=== PATIENT | female | born 1955 | race American Indian/Alaskan Native ===

== ENCOUNTER 2018-04-11 23:25 | Emergency (ER) | payer MEDICARE, SELFPAY ==
--- NOTE | 2018-04-12 06:08 | Emergency Department Report ---
ED Abdominal Pain HPI - General Chief Complaint: Abdominal Pain Stated Complaint: ABD PAIN Time Seen by Provider: 04/12/18 06:07 Source: patient Mode of arrival: Ambulatory Limitations: No Limitations - History of Present Illness Initial Comments: 62 year old female reports right upper quadrant pain that sometimes it is felt in the back intermittently for 8 days. The patient states she had an exacerbation of asthma last Friday and received a steroid injection. She states that after that her abdominal pain improved or a few days but has been there after intermittently recurrent. She cannot relate the abdominal pain to eating. She states that she felt constipated once but denies nausea vomiting or diarrhea. She reports no problems urinating, no fever or chills. She states that she has not had fatty food intolerance in the past. She reports no history of gall stones or kidney stones. She has had no prior surgery. MD Complaint: abdominal pain -: week(s) Location: RUQ Radiation: R flank Migration to: no migration Severity: moderate Quality: cramping Consistency: intermittent Improves With: nothing Worsens With: nothing Associated Symptoms: denies other symptoms - Related Data Previous Rx's Medication Instructions Recorded Last Taken Type Nebulizer and Compressor 1 each MC BID PRN #1 each 05/03/15 10/01/15 Rx [Innospire Essence Myrtle Neb] Albuterol Sulfate [Albuterol 0.63% 0.63 mg IH TID PRN #1 box 10/02/15 Unknown Rx NEBS] Ipratropium [Atrovent NEB] 0.5 mg IH Q8HRT PRN #1 box 10/05/15 Unknown Rx Amoxicillin/Potassium Clav 1 each PO BID #10 tablet 04/12/18 Unknown Rx [Augmentin 875-125 Tablet] HYDROcodone/ACETAMINOPHEN [[place] 1 each PO Q6H #10 tablet 04/12/18 Unknown Rx 5-325 Tablet] Allergies Allergy/AdvReac Type Severity Reaction Status Date / Time No Known Allergies Allergy Verified 03/16/15 09:20 ED Review of Systems ROS: Stated complaint: ABD PAIN Other details as noted in HPI Constitutional: denies: chills, fever Eyes: denies: eye pain, eye discharge, vision change ENT: denies: ear pain, throat pain Respiratory: wheezing. denies: cough, shortness of breath Cardiovascular: denies: chest pain, palpitations Endocrine: no symptoms reported Gastrointestinal: abdominal pain. denies: nausea, vomiting, diarrhea Genitourinary: denies: urgency, dysuria, discharge Musculoskeletal: denies: back pain, joint swelling, arthralgia Skin: denies: rash, lesions Neurological: denies: headache, weakness, paresthesias Psychiatric: denies: anxiety, depression Hematological/Lymphatic: denies: easy bleeding, easy bruising ED Past Medical Hx - Past Medical History Previous Medical History?: Yes Hx Hypertension: Yes Hx Asthma: Yes Hx COPD: Yes (chronic bronchitis) Hx HIV: No Additional medical history: Ragweed allergies - Surgical History Past Surgical History?: No - Social History Smoking Status: Never Smoker Substance Use Type: None - Medications Home Medications: Home Medications Medication Instructions Recorded Confirmed Last Taken Type Nebulizer and Compressor 1 each MC BID PRN #1 each 05/03/15 04/12/18 10/01/15 Rx [Innospire Essence Myrtle Neb] Albuterol Sulfate [Albuterol 0.63% 0.63 mg IH TID PRN #1 box 10/02/15 04/12/18 Unknown Rx NEBS] Ipratropium [Atrovent NEB] 0.5 mg IH Q8HRT PRN #1 box 10/05/15 04/12/18 Unknown Rx Amoxicillin/Potassium Clav 1 each PO BID #10 tablet 04/12/18 Unknown Rx [Augmentin 875-125 Tablet] HYDROcodone/ACETAMINOPHEN [[place] 1 each PO Q6H #10 tablet 04/12/18 Unknown Rx 5-325 Tablet] ED Physical Exam - General Limitations: No Limitations General appearance: alert, in no apparent distress - Head Head exam: Present: atraumatic, normocephalic - Eye Eye exam: Present: normal appearance, PERRL, EOMI - ENT ENT exam: Present: mucous membranes moist - Neck Neck exam: Present: normal inspection - Respiratory Respiratory exam: Present: wheezes (mild bilateral). Absent: respiratory distress - Cardiovascular Cardiovascular Exam: Present: regular rate, normal rhythm. Absent: systolic murmur, diastolic murmur, rubs, gallop - GI/Abdominal GI/Abdominal exam: Present: soft, tenderness (very minimal right upper quadrant discomfort to deep palpation, negative Lux's), normal bowel sounds. Absent: distended, guarding, rebound, rigid, organomegaly, mass, bruit, pulsatile mass, hernia - Extremities Exam Extremities exam: Present: normal inspection - Back Exam Back exam: Present: normal inspection. Absent: CVA tenderness (R), CVA tenderness (L), muscle spasm, paraspinal tenderness, vertebral tenderness - Neurological Exam Neurological exam: Present: alert, oriented X3, CN II-XII intact. Absent: motor sensory deficit - Psychiatric Psychiatric exam: Present: normal affect, normal mood - Skin Skin exam: Present: warm, dry, intact, normal color. Absent: rash ED Course Vital Signs 04/11/18 04/12/18 04/12/18 23:29 00:11 05:27 Temperature 98.6 F 98.6 F 98.3 F Pulse Rate 91 H 88 78 Pulse Rate [ Posterior Bilateral Throughout] Respiratory 18 17 18 Rate Respiratory Rate [Posterior Bilateral Throughout] Blood Pressure 142/100 142/100 Blood Pressure 131/95 [Left] O2 Sat by Pulse 99 99 99 Oximetry 04/12/18 04/12/18 04/12/18 06:41 06:48 07:29 Temperature Pulse Rate Pulse Rate [ 98 H 95 H Posterior Bilateral Throughout] Respiratory Rate Respiratory 14 14 Rate [Posterior Bilateral Throughout] Blood Pressure Blood Pressure [Left] O2 Sat by Pulse 95 Oximetry 04/12/18 04/12/18 04/12/18 07:30 07:32 07:34 Temperature Pulse Rate Pulse Rate [ Posterior Bilateral Throughout] Respiratory Rate Respiratory Rate [Posterior Bilateral Throughout] Blood Pressure 123/84 123/84 123/84 Blood Pressure [Left] O2 Sat by Pulse 96 95 94 Oximetry 04/12/18 04/12/18 07:36 07:38 Temperature 98.8 F Pulse Rate Pulse Rate [ Posterior Bilateral Throughout] Respiratory 18 Rate Respiratory Rate [Posterior Bilateral Throughout] Blood Pressure 123/84 Blood Pressure [Left] O2 Sat by Pulse 95 Oximetry - Reevaluation(s) Reevaluation #1: Patient is resting comfortably. She states her pain is totally resolved. I do not see the basis of the radiologist"s interpretation for cholecystitis. There is no mention of pericholecystic fluid or an edematous gallbladder wall. I believe the patient rather has biliary colic. Notwithstanding this, I will place patient on Augmentin for a few days. She is referred to the surgeon store operations manager. Return criteria are discussed. Repeat examination of the abdomen was nontender. 04/12/18 08:18 04/12/18 08:19 ED Medical Decision Making - Lab Data Result diagrams: 04/12/18 06:16 04/12/18 06:16 Laboratory Results - last 24 hr 04/12/18 04/12/18 04/12/18 06:16 06:16 06:16 WBC 6.4 RBC 4.80 Hgb 13.5 Hct 39.9 MCV 83 MCH 28 MCHC 34 RDW 14.1 Plt Count 301 Lymph % (Auto) 33.1 [place] % (Auto) 12.8 H Eos % (Auto) 12.0 H Baso % (Auto) 0.6 Lymph # 2.1 [place] # 0.8 Eos # 0.8 H Baso # 0.0 Seg Neutrophils % 41.5 Seg Neutrophils # 2.7 PT 12.6 INR 0.90 APTT 35.1 Sodium 143 Potassium 4.0 Chloride 105.5 Carbon Dioxide 27 Anion Gap 15 BUN 13 Creatinine 0.7 Estimated GFR > 60 BUN/Creatinine Ratio 19 Glucose 112 H Calcium 9.4 Magnesium Total Bilirubin Direct Bilirubin AST ALT Alkaline Phosphatase Total Protein Albumin Albumin/Globulin Ratio Lipase Urine Color Urine Turbidity Urine pH Ur Specific [place] Urine Protein Urine Glucose (UA) Urine Ketones Urine Blood Urine Nitrite Urine Bilirubin Urine Urobilinogen Ur Leukocyte Esterase Urine WBC (Auto) Urine RBC (Auto) U Epithel Cells (Auto) 04/12/18 04/12/18 06:16 Unknown WBC RBC Hgb Hct MCV MCH MCHC RDW Plt Count Lymph % (Auto) [place] % (Auto) Eos % (Auto) Baso % (Auto) Lymph # [place] # Eos # Baso # Seg Neutrophils % Seg Neutrophils # PT INR APTT Sodium Potassium Chloride Carbon Dioxide Anion Gap BUN Creatinine Estimated GFR BUN/Creatinine Ratio Glucose Calcium Magnesium 2.30 Total Bilirubin 0.50 Direct Bilirubin < 0.2 AST 15 ALT 18 Alkaline Phosphatase 111 Total Protein 7.5 Albumin 4.7 Albumin/Globulin Ratio 1.7 Lipase 30 Urine Color Straw Urine Turbidity Clear Urine pH 7.0 Ur Specific [place] 1.009 Urine Protein <15 mg/dl Urine Glucose (UA) Neg Urine Ketones Neg Urine Blood Neg Urine Nitrite Neg Urine Bilirubin Neg Urine Urobilinogen < 2.0 Ur Leukocyte Esterase Neg Urine WBC (Auto) 1.0 Urine RBC (Auto) 3.0 U Epithel Cells (Auto) < 1.0 - Radiology Data Radiology results: report reviewed Critical care attestation.: If time is entered above; I have spent that time in minutes in the direct care of this critically ill patient, excluding procedure time. ED Disposition Clinical Impression: Biliary colic Disposition: TO HOME OR SELFCARE Is pt being admited?: No Does the pt Need Aspirin: No Condition: Stable Instructions: Abdominal Pain (ED), Biliary Colic (ED), Cholecystitis (ED) Additional Instructions: Return to the emergency department for any considerable pain, vomiting, fever or chills. Otherwise follow-up with the surgeon Dr. Marcelino. See referral. Rx as directed. Prescriptions: Amoxicillin/Potassium Clav [Augmentin 875-125 Tablet] 1 each PO BID #10 tablet HYDROcodone/ACETAMINOPHEN [[place] 5-325 Tablet] 1 each PO Q6H #10 tablet Referrals: KERRI GAMBOA MD [Primary Care Provider] - 3-5 Days DUSTIN MARCELINO DO [Staff Physician] - 2-3 Days Time of Disposition: 08:23
[2018-04-12] MEDS ORDERED: DUONEB *Not for PRN Use IH ONE (06:33)
[2018-04-12] MEDS ORDERED: NORCO 5/325 PO ONE (06:34)
[2018-04-12 06:40] LABS: Basophils % (Auto) 0.6 % (0.0-1.8); Eosinophils # (Auto) 0.8 K/mm3 (0.0-0.4); Hematocrit 39.9 % (30.3-42.9); Hemoglobin 13.5 gm/dl (10.1-14.3); Lymphocytes # (Auto) 2.1 K/mm3 (1.2-5.4); Lymphocytes % (Auto) 33.1 % (13.4-35.0); Mean Corpuscular HGB Conc 34 % (30-34); Mean Corpuscular Hemoglobin 28 pg (28-32); Mean Corpuscular Volume 83 fl (79-97); Monocytes # (Auto) 0.8 K/mm3 (0.0-0.8); Monocytes % (Auto) 12.8 % (0.0-7.3); Platelet Count 301 K/mm3 (140-440); Red Cell Distribution Width 14.1 % (13.2-15.2)
[2018-04-12 06:56] LABS: INR 0.9 (0.87-1.13)
[2018-04-12 06:57] LABS: Partial Thromboplastin Time 35.1 Sec. (24.2-36.6)
[2018-04-12 06:59] LABS: BUN/Creatinine Ratio 19; Blood Urea Nitrogen 13 mg/dL (7-17); Calcium 9.4 mg/dL (8.4-10.2); Hemolysis Index 0
[2018-04-12 06:59] LABS: Bilirubin,Urine NEG (Negative); Blood,Urine NEG (Negative); Color,Urine Straw (Yellow); Protein,Urine <15 mg/dL mg/dL (Negative); Urobilinogen,Urine < 2.0 mg/dL (<2.0)
[2018-04-12 07:02] LABS: Alanine Aminotransferase 18 units/L (7-56); Albumin 4.7 g/dL (3.9-5); Lipase 30 units/L (13-60)
[2018-04-12 07:03] LABS: Bilirubin,Direct < 0.2 mg/dL (0-0.2)
--- NOTE | 2018-04-12 07:29 | Ultrasound Report ---
FINAL REPORT EXAM: US ABDOMEN LIMITED HISTORY: RUQ pain COMPARISONS: None FINDINGS: Grayscale and color Doppler ultrasound evaluation of the right upper abdomen Liver is normal in size and contour. Hepatic parenchymal echogenicity is diffusely increased. No parenchymal lesion identified. No intra or extrahepatic biliary ductal dilatation. The common duct measures approximately 6 millimeters in caliber. The gallbladder is full of sludge and there is a 2.4 centimeter echogenic shadowing stone at the neck of the gallbladder. The pulmonary function technologist reports positive sonographic Lux sign. Imaged portion of the pancreatic head is sonographically unremarkable. The remainder of the pancreas is not well seen secondary to overlying bowel gas. No abdominal ascites or free fluid in Villanueva's pouch. The right kidney measures up to 10.5 cm in length and is without hydronephrosis or echogenic shadowing foci to suggest nephrolithiasis. There is a nonshadowing echogenic focus in the interpolar parenchyma of the right kidney, which may represent ectopic renal fat versus a small angiomyolipoma is too small to characterize. IMPRESSION: Findings are consistent with cholecystitis. If clinical picture is equivocal, consider nuclear medicine hepatobiliary scan for more specific evaluation. Hepatic steatosis.
[2018-04-12 07:38] VITALS: BP 123/84
== END 2018-04-12 08:58 | disposition home or self-care (01) ==
LOC: ED 23:25
DX: K80.50 Calculus of bile duct without cholangitis or cholecystitis without obstruction (principal); I10 Essential (primary) hypertension; J44.9 Chronic obstructive pulmonary disease, unspecified
CPT/HCPCS: 36415; 76705; 80048; 80074; 81001; 83690; 83735; 85025; 85610; 85730; 94640; 99284

== ENCOUNTER 2018-04-14 01:17 | Inpatient (IN) | payer MEDICARE ==
[2018-04-14] MEDS ORDERED: NACL 0.9% 1000 ML 1,000 ML IV ONE ×2 (02:42→09:50)
[2018-04-14] MEDS ORDERED: DUONEB *Not for PRN Use IH ONE (03:01)
[2018-04-14 03:39] LABS: Basophils # (Auto) 0.1 K/mm3 (0.0-0.1); Basophils % (Auto) 0.6 % (0.0-1.8); Eosinophils # (Auto) 0.2 K/mm3 (0.0-0.4); Eosinophils % (Auto) 2.5 % (0.0-4.3); Hematocrit 43.2 % (30.3-42.9); Hemoglobin 14.5 gm/dl (10.1-14.3); Lymphocytes # (Auto) 1.9 K/mm3 (1.2-5.4); Lymphocytes % (Auto) 19.1 % (13.4-35.0); Mean Corpuscular HGB Conc 34 % (30-34); Mean Corpuscular Hemoglobin 28 pg (28-32); Mean Corpuscular Volume 84 fl (79-97); Monocytes # (Auto) 0.9 K/mm3 (0.0-0.8); Monocytes % (Auto) 9.4 % (0.0-7.3); Platelet Count 336 K/mm3 (140-440); Red Blood Count 5.14 M/mm3 (3.65-5.03); Red Cell Distribution Width 14.1 % (13.2-15.2)
[2018-04-14 04:00] LABS: Alanine Aminotransferase 19 units/L (7-56); Albumin 4.9 g/dL (3.9-5); BUN/Creatinine Ratio 15; Blood Urea Nitrogen 9 mg/dL (7-17); Calcium 10.2 mg/dL (8.4-10.2); Hemolysis Index 7; Lipase 17 units/L (13-60)
[2018-04-14 05:46] LABS: Bilirubin,Urine NEG (Negative); Blood,Urine NEG (Negative); Color,Urine Straw (Yellow); Protein,Urine <15 mg/dL mg/dL (Negative); Urobilinogen,Urine < 2.0 mg/dL (<2.0); WBC,Urine < 1.0 /HPF (0.0-6.0)
[2018-04-14 05:50] LABS: RBC,Urine < 1.0 /HPF (0.0-6.0)
[2018-04-14] MEDS ORDERED: MORPHINE IV ONE (09:50)
[2018-04-14] MEDS ORDERED: ZOFRAN IV ONE (09:50)
[2018-04-14] MEDS ORDERED: BENTYL IM ONE (09:50)
[2018-04-14] MEDS ORDERED: TORADOL IV ONE (09:50)
--- NOTE | 2018-04-14 10:41 | Emergency Department Report ---
ED Abdominal Pain HPI - General Chief Complaint: Abdominal Pain Stated Complaint: ABDOMINAL PAIN Time Seen by Provider: 04/14/18 09:39 Source: patient, EMS Mode of arrival: Wheelchair Limitations: No Limitations - History of Present Illness Initial Comments: Patient is a 62-year-old black female was diagnosed with gallstones about 2 days ago here in the emergency department. Patient's ultrasound showed possible early cholecystitis as the patient had no sonographic Lux sign. Patient was sent home with Vicodin and Augmentin but hasn't been unable to keep down anything for the last 2 days. Patient has had persistent right upper quadrant pain as well. Patient states the pain is 8 out of 10 in severity. Patient had multiple episodes of nausea and vomiting without diarrhea. Radiation: RUQ Severity scale (0 -10): 10 Quality: stabbing Consistency: constant - Related Data Previous Rx's Medication Instructions Recorded Last Taken Type Nebulizer and Compressor 1 each MC BID PRN #1 each 05/03/15 10/01/15 Rx [Innospire Essence Myrtle Neb] Albuterol Sulfate [Albuterol 0.63% 0.63 mg IH TID PRN #1 box 10/02/15 Unknown Rx NEBS] Ipratropium [Atrovent NEB] 0.5 mg IH Q8HRT PRN #1 box 10/05/15 Unknown Rx Amoxicillin/Potassium Clav 1 each PO BID #10 tablet 04/12/18 Unknown Rx [Augmentin 875-125 Tablet] HYDROcodone/ACETAMINOPHEN [[place] 1 each PO Q6H #10 tablet 04/12/18 Unknown Rx 5-325 Tablet] Allergies Allergy/AdvReac Type Severity Reaction Status Date / Time No Known Allergies Allergy Verified 03/16/15 09:20 ED Review of Systems ROS: Stated complaint: ABDOMINAL PAIN Other details as noted in HPI Comment: All other systems reviewed and negative ED Past Medical Hx - Past Medical History Previous Medical History?: Yes Hx Hypertension: No Hx Asthma: Yes Hx COPD: Yes (chronic bronchitis) Hx HIV: No Additional medical history: Ragweed allergies. gallstones - Surgical History Past Surgical History?: No - Social History Smoking Status: Never Smoker Substance Use Type: None - Medications Home Medications: Home Medications Medication Instructions Recorded Confirmed Last Taken Type Nebulizer and Compressor 1 each MC BID PRN #1 each 05/03/15 04/12/18 10/01/15 Rx [Innospire Essence Myrtle Neb] Albuterol Sulfate [Albuterol 0.63% 0.63 mg IH TID PRN #1 box 10/02/15 04/12/18 Unknown Rx NEBS] Ipratropium [Atrovent NEB] 0.5 mg IH Q8HRT PRN #1 box 10/05/15 04/12/18 Unknown Rx Amoxicillin/Potassium Clav 1 each PO BID #10 tablet 04/12/18 Unknown Rx [Augmentin 875-125 Tablet] HYDROcodone/ACETAMINOPHEN [[place] 1 each PO Q6H #10 tablet 04/12/18 Unknown Rx 5-325 Tablet] ED Physical Exam - General Limitations: No Limitations General appearance: alert, in distress - Head Head exam: Present: atraumatic, normocephalic - Eye Eye exam: Present: normal appearance - ENT ENT exam: Present: mucous membranes moist - Neck Neck exam: Present: normal inspection - Respiratory Respiratory exam: Present: normal lung sounds bilaterally, wheezes (mild). Absent: respiratory distress, rales, rhonchi, decreased breath sounds - Cardiovascular Cardiovascular Exam: Present: regular rate, normal rhythm. Absent: systolic murmur, diastolic murmur, rubs, gallop - GI/Abdominal GI/Abdominal exam: Present: soft, tenderness, normal bowel sounds. Absent: distended, guarding, rebound, rigid - Extremities Exam Extremities exam: Present: normal inspection - Back Exam Back exam: Present: normal inspection - Neurological Exam Neurological exam: Present: alert, oriented X3 - Psychiatric Psychiatric exam: Present: normal affect, normal mood - Skin Skin exam: Present: warm, dry, intact, normal color. Absent: rash ED Course Vital Signs 04/14/18 04/14/18 01:37 02:38 Temperature 98.2 F 98.2 F Pulse Rate 94 H 95 H Respiratory 18 18 Rate Blood Pressure 150/97 150/97 O2 Sat by Pulse 96 97 Oximetry ED Medical Decision Making - Lab Data Result diagrams: 04/14/18 03:19 04/14/18 03:19 Lab Results 04/14/18 04/14/18 04/14/18 Range/Units 03:19 03:19 05:12 WBC 9.9 (4.5-11.0) K/mm3 RBC 5.14 H (3.65-5.03) M/mm3 Hgb 14.5 H (10.1-14.3) gm/dl Hct 43.2 H (30.3-42.9) % MCV 84 (79-97) fl MCH 28 (28-32) pg MCHC 34 (30-34) % RDW 14.1 (13.2-15.2) % Plt Count 336 (140-440) K/mm3 Lymph % (Auto) 19.1 (13.4-35.0) % [place] % (Auto) 9.4 H (0.0-7.3) % Eos % (Auto) 2.5 (0.0-4.3) % Baso % (Auto) 0.6 (0.0-1.8) % Lymph # 1.9 (1.2-5.4) K/mm3 [place] # 0.9 H (0.0-0.8) K/mm3 Eos # 0.2 (0.0-0.4) K/mm3 Baso # 0.1 (0.0-0.1) K/mm3 Seg Neutrophils % 68.4 (40.0-70.0) % Seg Neutrophils # 6.8 (1.8-7.7) K/mm3 Sodium 139 (137-145) mmol/L Potassium 4.6 (3.6-5.0) mmol/L Chloride 101.1 (98-107) mmol/L Carbon Dioxide 27 (22-30) mmol/L Anion Gap 16 mmol/L BUN 9 (7-17) mg/dL Creatinine 0.6 L (0.7-1.2) mg/dL Estimated GFR > 60 ml/min BUN/Creatinine Ratio 15 % Glucose 147 H (65-100) mg/dL Calcium 10.2 (8.4-10.2) mg/dL Total Bilirubin 0.40 (0.1-1.2) mg/dL AST 16 (5-40) units/L ALT 19 (7-56) units/L Alkaline Phosphatase 117 (35-129) units/L Total Protein 8.0 (6.3-8.2) g/dL Albumin 4.9 (3.9-5) g/dL Albumin/Globulin Ratio 1.6 % Lipase 17 (13-60) units/L Urine Color Straw (Yellow) Urine Turbidity Clear (Clear) Urine pH 7.0 (5.0-7.0) Ur Specific [place] 1.009 (1.003-1.030) Urine Protein <15 mg/dl (Negative) mg/dL Urine Glucose (UA) Neg (Negative) mg/dL Urine Ketones Neg (Negative) mg/dL Urine Blood Neg (Negative) Urine Nitrite Neg (Negative) Urine Bilirubin Neg (Negative) Urine Urobilinogen < 2.0 (<2.0) mg/dL Ur Leukocyte Esterase Neg (Negative) Urine WBC (Auto) < 1.0 (0.0-6.0) /HPF Urine RBC (Auto) < 1.0 (0.0-6.0) /HPF U Epithel Cells (Auto) 1.0 (0-13.0) /HPF - Medical Decision Making Patient's had persistent pain and despite morphine and still having pain in the right upper quadrant. In review of the patient's ultrasound from 2-1/2 days ago the patient has a 2.4 cm stone is at the neck of the gallbladder which most likely is causing her pain. Patient will be admitted to medicine service. Dr. Metcalf what surgeries been consult. Critical care attestation.: If time is entered above; I have spent that time in minutes in the direct care of this critically ill patient, excluding procedure time. ED Disposition Clinical Impression: Cholecystitis, Bronchospasm Disposition: DC-01 TO HOME OR SELFCARE Is pt being admited?: Yes Does the pt Need Aspirin: No Condition: Stable Instructions: Abdominal Pain (ED) Referrals: PRIMARY CARE, [Primary Care Provider] - 3-5 Days Time of Disposition: 10:41
[2018-04-14] MEDS ORDERED: NACL 0.9% 1000 ML 1,000 ML IV SCH (11:00)
--- NOTE | 2018-04-14 12:56 | History and Physical Report ---
History of Present Illness Date of examination: 04/14/18 Date of admission: 04/14/18 10:42 Chief complaint: Right upper quadrant abdominal pain History of present illness: Patient is 62 yo with history of asthma, presented with right upper quadrant abdominal pain. Abdominal pain is dull, 10 out of 10 in intensity. There was no radiation of pain. Pain is worse on eating. She also complains of nausea and vomiting. vomited about 4 times over two days. patient has asthma and complains of mild wheezing. No fever. She was evaluated in ED, found to have acute cholecystitis. She is being admitted for cholecystectomy. Patient evaluated by Surgeon and is scheduled for surgery tomorrow. Past History Past Medical History: other (asthma) Past Surgical History: denies: No surgical history Social history: single, full code, other (Alcohol occasionally). denies: smoking Family history: no significant family history Medications and Allergies Allergies Allergy/AdvReac Type Severity Reaction Status Date / Time No Known Allergies Allergy Verified 03/16/15 09:20 Home Medications Medication Instructions Recorded Confirmed Last Taken Type Amoxicillin/Potassium Clav 1 each PO BID #10 tablet 04/12/18 04/14/18 Unknown Rx [Augmentin 875-125 Tablet] HYDROcodone/ACETAMINOPHEN [[place] 1 each PO Q6H #10 tablet 04/12/18 04/14/18 Unknown Rx 5-325 Tablet] ALBUTEROL Inhaler(NF) [VENTOLIN 1 puff IH PRN 04/14/18 04/14/18 Unknown History Inhaler(NF)] Active Meds: Active Medications Sodium Chloride (Nacl 0.9% 1000 Ml) 1,000 mls @ 125 mls/hr IV DIRECT YESSENIA Exam - Physical Exam Narrative exam: GEN: Not in acute distress, obese HEENT: Normocephalic, atraumatic, Neck: supple, No JVD Lungs: Few bilateral rhonchi, wheezing Heart:S1 and S2 regular, no murmurs, rubs or gallop, Abd:soft, tender RUQ, no rebound tenderness, non-distended, normal bowel sounds Ext: No edema, no clubbing, no cyanosis Neuro: Awake, alert, oriented x 3, no focal signs - Constitutional Vitals: Temp Pulse Resp BP Pulse Ox 98.2 F 95 H 18 150/97 97 04/14/18 02:38 04/14/18 02:38 04/14/18 02:38 04/14/18 02:38 04/14/18 02:38 Results - Labs CBC & Chem 7: 04/15/18 04:41 04/15/18 04:41 Labs: Abnormal lab results 04/14/18 04/14/18 Range/Units 03:19 03:19 RBC 5.14 H (3.65-5.03) M/mm3 Hgb 14.5 H (10.1-14.3) gm/dl Hct 43.2 H (30.3-42.9) % [place] % (Auto) 9.4 H (0.0-7.3) % [place] # 0.9 H (0.0-0.8) K/mm3 Creatinine 0.6 L (0.7-1.2) mg/dL Glucose 147 H (65-100) mg/dL Assessment and Plan Acute cholecystitis. Admit to med/surg Zosyn iv Blood cultures before antibiotics morphine for pain management Dr. Metcalf, surgeon consulted. Discussed with him at bedside For surgery tomorrow Asthma exacerbation Duoneb Q 6h and albuterol q 4 prn Full code status
[2018-04-14] MEDS ORDERED: ZOFRAN IV PRN (13:04)
[2018-04-14] MEDS ORDERED: SODIUM CHLORIDE FLUSH SYRINGE 10 ML IV PRN (13:04)
[2018-04-14] MEDS ORDERED: PROVENTIL IH PRN (13:04)
[2018-04-14] MEDS ORDERED: TYLENOL PO PRN (13:04)
--- NOTE | 2018-04-14 13:23 | Consultation ---
History of Present Illness Consult date: 04/14/18 Reason for consult: gallstones Requesting physician: DAVE TATE Chief complaint: RUQ pain - History of present illness History of present illness: Patient is a [id number] female who returns to the emergency room with complaints of right upper quadrant pain. She was seen in emergency department 2 days ago. She was discharged on pain medication and antibiotics when she was found to have a large gallstone but no other significant findings suggestive of infection. She reports that she felt well for a brief period until the pain came back. Reports nausea and vomiting. She has been having chills. Denies fever. In retrospect, she reports that she has had multiple attacks over the past year. She attributed the pain to other things. Past History Past Medical History: other (asthma) Past Surgical History: No surgical history Social history: other (occasional alcohol use). denies: smoking Family history: hypertension, stroke Medications and Allergies Allergies Allergy/AdvReac Type Severity Reaction Status Date / Time No Known Allergies Allergy Verified 03/16/15 09:20 Home Medications Medication Instructions Recorded Confirmed Last Taken Type Amoxicillin/Potassium Clav 1 each PO BID #10 tablet 04/12/18 04/14/18 Unknown Rx [Augmentin 875-125 Tablet] HYDROcodone/ACETAMINOPHEN [[place] 1 each PO Q6H #10 tablet 04/12/18 04/14/18 Unknown Rx 5-325 Tablet] ALBUTEROL Inhaler(NF) [VENTOLIN 1 puff IH PRN 04/14/18 04/14/18 Unknown History Inhaler(NF)] Active Meds: Active Medications Acetaminophen (Tylenol) 650 mg PO Q4H PRN PRN Reason: Pain MILD(1-3)/Fever >100.5/LUCIANO Albuterol (Proventil) 2.5 mg IH Q4HRT PRN PRN Reason: Shortness Of Breath Albuterol/Ipratropium (Duoneb *Not For Prn Use*) 1 ampul IH Q6HRT YESSENIA Famotidine (Pepcid) 10 mg IV BID YESSENIA Sodium Chloride (Nacl 0.9% 1000 Ml) 1,000 mls @ 125 mls/hr IV DIRECT YESSENIA Piperacillin Sod/Tazobactam Sod (Zosyn/Ns 4.5gm/100ml) 4.5 gm in 100 mls @ 200 mls/hr IV Q6HR YESSENIA; Protocol Dextrose/Sodium Chloride (D5/0.45ns) 1,000 mls @ 75 mls/hr IV DIRECT YESSENIA Morphine Sulfate (Morphine) 2 mg IV Q4H PRN PRN Reason: Pain, Moderate (4-6) Ondansetron HCl (Zofran) 4 mg IV Q8H PRN PRN Reason: Nausea And Vomiting Sodium Chloride (Sodium Chloride Flush Syringe 10 Ml) 10 ml IV BID YESSENIA Sodium Chloride (Sodium Chloride Flush Syringe 10 Ml) 10 ml IV PRN PRN PRN Reason: LINE FLUSH Review of Systems - Constitutional chills, no fever, no chronic pain - Cardiovascular no chest pain, no rapid/irregular heart beat - Respiratory wheezing, no cough, no shortness of breath - Gastrointestinal abdominal pain, nausea, vomiting, no diarrhea, no constipation, no change in bowel habits, no hematemesis, no coffee ground emesis, no BRBPR, no melena, no hematochezia, no jaundice - Genitourinary Genitourinary: no dysuria - Muskuloskeletal no low back pain - Integumentary no pruritis, no wounds, no jaundice Exam Vital Signs Temp Pulse Resp BP Pulse Ox 98.2 F 94 H 18 150/97 96 04/14/18 01:37 04/14/18 01:37 04/14/18 01:37 04/14/18 01:37 04/14/18 01:37 - General physical appearance Positive: no distress, no pain, other (very pleasant female. Does not appear ill.) - Eyes Positive: normal occular movement. Negative: icteric - Respiratory Positive: normal expansion, normal respiratory effort wheezing: bilateral - Cardiovascular Rhythm: regular - Abdomen Abdomen: Present: soft, tender (in the RUQ only), bowel sounds normal. Absent: distended, guarding, rigid, wound, surgical scars - Integumentary no rash, no growths, no abnormal pigmentation - Neurologic Neurologic: alert and oriented to time, place and person, motor strength and sensation are grossly intact - Psychiatric Psychiatric: appropriate mood/affect, intact judgment & insight Results - Labs 04/14/18 03:19 04/14/18 03:19 Abnormal lab results 04/14/18 04/14/18 Range/Units 03:19 03:19 RBC 5.14 H (3.65-5.03) M/mm3 Hgb 14.5 H (10.1-14.3) gm/dl Hct 43.2 H (30.3-42.9) % [place] % (Auto) 9.4 H (0.0-7.3) % [place] # 0.9 H (0.0-0.8) K/mm3 Creatinine 0.6 L (0.7-1.2) mg/dL Glucose 147 H (65-100) mg/dL Diabetes panel 04/14/18 Range/Units 03:19 Sodium 139 (137-145) mmol/L Potassium 4.6 (3.6-5.0) mmol/L Chloride 101.1 (98-107) mmol/L Carbon Dioxide 27 (22-30) mmol/L BUN 9 (7-17) mg/dL Creatinine 0.6 L (0.7-1.2) mg/dL Glucose 147 H (65-100) mg/dL Calcium 10.2 (8.4-10.2) mg/dL AST 16 (5-40) units/L ALT 19 (7-56) units/L Alkaline Phosphatase 117 (35-129) units/L Total Protein 8.0 (6.3-8.2) g/dL Albumin 4.9 (3.9-5) g/dL Calcium panel 04/14/18 Range/Units 03:19 Calcium 10.2 (8.4-10.2) mg/dL Albumin 4.9 (3.9-5) g/dL Pituitary panel 04/14/18 Range/Units 03:19 Sodium 139 (137-145) mmol/L Potassium 4.6 (3.6-5.0) mmol/L Chloride 101.1 (98-107) mmol/L Carbon Dioxide 27 (22-30) mmol/L BUN 9 (7-17) mg/dL Creatinine 0.6 L (0.7-1.2) mg/dL Glucose 147 H (65-100) mg/dL Calcium 10.2 (8.4-10.2) mg/dL Adrenal panel 04/14/18 Range/Units 03:19 Sodium 139 (137-145) mmol/L Potassium 4.6 (3.6-5.0) mmol/L Chloride 101.1 (98-107) mmol/L Carbon Dioxide 27 (22-30) mmol/L BUN 9 (7-17) mg/dL Creatinine 0.6 L (0.7-1.2) mg/dL Glucose 147 H (65-100) mg/dL Calcium 10.2 (8.4-10.2) mg/dL Total Bilirubin 0.40 (0.1-1.2) mg/dL AST 16 (5-40) units/L ALT 19 (7-56) units/L Alkaline Phosphatase 117 (35-129) units/L Total Protein 8.0 (6.3-8.2) g/dL Albumin 4.9 (3.9-5) g/dL - Imaging US - abdomen: report reviewed, image reviewed Assessment and Plan - Patient Problems (1) Biliary colic Current Visit: No Status: Acute Plan to address problem: Patient stable. I think her pain originates from a large gallstone being impacted in the neck of the gallbladder. There may be some mild thickening of the wall on the ultrasound images which would go along with her multiple attacks in the past. I doubt she has any active infection right now. She would benefit from cholecystectomy. Procedure, risks, benefits were discussed. Risks included, but were not limited to, infection, bleeding, pain, injury to surrounding structures, possible need for open surgery, possible need for further procedures in the future, etc. All questions answered. Consent obtained. Will proceed to surgery tomorrow at 10am. Please call with questions. Time=45min
[2018-04-14] MEDS: DUONEB *Not for PRN Use IH SCH ×3 (16:08→19:39)
[2018-04-14] MEDS: PEPCID IV SCH ×2 (17:21→22:06)
[2018-04-14] MEDS: ZOSYN/NS 4.5GM/100ML 4.5 GM/100 ML VIAL IV SCH (17:21)
[2018-04-14] MEDS: MORPHINE IV PRN (17:58)
[2018-04-14] MEDS: D5/0.45NS 1,000 ML IV SCH (18:00)
[2018-04-15] MEDS: SODIUM CHLORIDE FLUSH SYRINGE 10 ML IV SCH ×2 (00:09→11:58)
[2018-04-15] MEDS: MORPHINE IV PRN ×2 (00:10→05:28)
[2018-04-15] MEDS: ZOSYN/NS 4.5GM/100ML 4.5 GM/100 ML VIAL IV SCH ×2 (00:14→07:37)
[2018-04-15] MEDS: DUONEB *Not for PRN Use IH SCH ×5 (02:03→19:19)
[2018-04-15 05:47] LABS: Basophils % (Auto) 0.5 % (0.0-1.8); Eosinophils # (Auto) 0.4 K/mm3 (0.0-0.4); Eosinophils % (Auto) 4.2 % (0.0-4.3); Hematocrit 42.3 % (30.3-42.9); Hemoglobin 13.9 gm/dl (10.1-14.3); Lymphocytes # (Auto) 1.5 K/mm3 (1.2-5.4); Lymphocytes % (Auto) 14.9 % (13.4-35.0); Mean Corpuscular HGB Conc 33 % (30-34); Mean Corpuscular Hemoglobin 28 pg (28-32); Mean Corpuscular Volume 85 fl (79-97); Monocytes # (Auto) 1.1 K/mm3 (0.0-0.8); Monocytes % (Auto) 10.9 % (0.0-7.3); Platelet Count 336 K/mm3 (140-440); Red Cell Distribution Width 14.2 % (13.2-15.2)
[2018-04-15 05:57] LABS: INR 0.95 (0.87-1.13); Partial Thromboplastin Time 33.7 Sec. (24.2-36.6)
[2018-04-15 06:11] LABS: BUN/Creatinine Ratio 9; Blood Urea Nitrogen 7 mg/dL (7-17); Calcium 9.2 mg/dL (8.4-10.2); Hemolysis Index 6
--- NOTE | 2018-04-15 07:19 | Anesthesia Consultation ---
Anesthesia Consult and Med Hx Date of service: 04/15/18 - Airway Anesthetic Teeth Evaluation: Good ROM Head & Neck: Adequate Mental/Hyoid Distance: Adequate Mallampati Class: Class II Intubation Access Assessment: Probably Good - Pre-Operative Health Status ASA Pre-Surgery Classification: ASA2 Proposed Anesthetic Plan: General - Pulmonary Hx Asthma: Yes COPD: Yes (chronic bronchitis) - Cardiovascular System Hx Hypertension: No - Central Nervous System Hx Psychiatric Problems: No - Endocrine Hx Liver Disease: Yes (gallbladder disease) - Other Systems Hx Cancer: No Hx Obesity: Yes
[2018-04-15] MEDS ORDERED: VERSED IV NR ×2 (08:00→09:00)
[2018-04-15] MEDS ORDERED: PEPCID IV NR (08:00)
[2018-04-15] MEDS ORDERED: LACTATED RINGERS 1,000 ML IV SCH ×2 (08:00→09:00)
[2018-04-15] MEDS ORDERED: ZOFRAN IV PRN (09:30)
[2018-04-15] MEDS ORDERED: DILAUDID IV PRN (09:30)
[2018-04-15] MEDS ORDERED: XYLOCAINE MPF 2% ONE (09:41)
[2018-04-15] MEDS ORDERED: DIPRIVAN 10 MG/ML IV ONE (09:41)
[2018-04-15] MEDS ORDERED: DILAUDID ONE (09:42)
[2018-04-15] MEDS ORDERED: DECADRON ONE (09:43)
[2018-04-15] MEDS ORDERED: ZOFRAN ONE (09:43)
[2018-04-15] MEDS ORDERED: ZEMURON IV ONE (09:43)
[2018-04-15] MEDS ORDERED: MARCAINE 0.5% INFILTRATI ONE ×2 (10:06→10:37)
[2018-04-15] MEDS ORDERED: NACL 0.9% 100 ML ONE (10:06)
[2018-04-15] MEDS ORDERED: XYLOCAINE 1% 20 mL ONE (10:06)
[2018-04-15] MEDS ORDERED: XYLOCAINE 1% 20 mL INFILTRATI ONE (10:37)
[2018-04-15] MEDS ORDERED: NACL 0.9% IV ONE (10:58)
[2018-04-15] MEDS ORDERED: OMNIPAQUE 300 MG/50 ML (CATH LAB) IV ONE (10:58)
--- NOTE | 2018-04-15 11:50 | Post Operative Note ---
Date of procedure: 04/15/18 (Dictation:[id number]) Pre-op diagnosis: Symptomatic Cholelithiasis Post-op diagnosis: other (Cholelithiasis and cholecystitis) Findings: distended GB with edematous, slightly inflamed wall. Large stone at neck Procedure: Lap nola with IOC Anesthesia: MIKIA Surgeon: CATERINA MEYERS [place] Laborer: DUSTIN MARCELINO Estimated blood loss: minimal Pathology: list (GB) Specimen disposition: to lab Condition: stable Disposition: PACU
[2018-04-15] MEDS: PEPCID IV SCH (11:57)
--- NOTE | 2018-04-15 12:37 | Operative Report ---
PREOPERATIVE DIAGNOSES: Symptomatic cholelithiasis with gallstone, impacted in neck of gallbladder. POSTOPERATIVE DIAGNOSES: Symptomatic cholelithiasis with gallstone, impacted in neck of gallbladder, cholecystitis. PROCEDURE: Laparoscopic cholecystectomy with intraoperative cholangiogram. ATTENDING PHYSICIAN Duglas Metcalf MD BILLING CLERK: Dr. Saucedo. ANESTHESIA: General. ESTIMATED BLOOD LOSS: Minimal. FLUIDS: 250 mL. FINDINGS: Distended, thickened gallbladder with edematous and slightly inflamed wall, large gallstone noted within the gallbladder. The isolated omental adhesion noted in the left lower quadrant, which was taken down. No clear hernia was identified. The cholangiogram was normal. SPECIMENS: Gallbladder. DRAINS: None. COMPLICATIONS: None. DISPOSITION: Stable transport to Recovery Room. INDICATIONS: This is a 62-year-old female who returned to the ER after having been seen 48 hours prior for abdominal pain. She was found to have a large stone at the neck of the gallbladder that was impacted and she had a positive sonographic Lux sign. On exam, the patient had significant discomfort in the right upper quadrant. The patient was assessed to be in need for cholecystectomy as the pain was felt to be secondary to a distended gallbladder from an impacted stone. Procedure, risks, benefits were explained to the patient. Risks included but were not limited to infection, bleeding, pain, injury to surrounding structures, approximately for open surgery, approximately for further procedures in the future. The patient understood and consented. OPERATIVE NOTE: The patient was brought to the operating room and placed in the supine position. After adequate general anesthesia established, the patient was prepped and draped in the usual sterile fashion. Antibiotics were already going from the floor. SCDs were in place. Time-out was called. I began by placing a Veress needle in the left upper quadrant. We were able to insufflate in the first attempt. The supraumbilical skin was anesthetized. Curvilinear incision was made and then a 12 mm port was inserted using the Optiview technique. We entered the peritoneal cavity safely. I looked over where the Veress needle was. There was a very small injury to the omentum. At the end of the case, we had examined that area thoroughly. There was no injury underneath the omentum. There was no injury to the underlying bowel. I think this was a very superficial omental injury and at the end of the case, we saw no evidence of any active bleeding. The amount of blood, which was very small amount that we saw at the beginning of the case was unchanged at the end of the case. Three 5 mm ports were placed parallel to the subcostal margin. We elevated the gallbladder. We initially aspirated, tried to get some fluid out, which helped to decompress the gallbladder slightly such that we could then grab it and elevate it over the liver edge. I dissected out the cystic duct. Cystic artery was identified and cauterized and divided with Harmonic scalpel. We dissected out the cystic artery, a clip was placed proximally on the cystic duct in relation to the gallbladder, a small incision was made. Cholangiogram catheter was inserted. A cholangiogram was done. We saw a good-sized cystic duct. We were able to show both left and right hepatic ducts as well as the common duct. There was no evidence of any filling defect. There was a slight shadow that I believe was an air bubble. We had a quick drainage into the duodenum and it tapered normally. Catheter was removed. Three clips were placed distally in the cystic duct in relation to the gallbladder. Cystic duct was divided with Harmonic scalpel. I removed the gallbladder from the bed with the Harmonic scalpel. As mentioned, the plane was very edematous, wall was thickened and slightly inflamed, so I think she did have a component of cholecystitis as well. Once the gallbladder was removed, we thoroughly irrigated out the area. We checked the bed, it was completely hemostatic. We checked the clips on the cystic duct. They were all intact. There was no evidence of any active bleeding. We placed the specimen in the EndoCatch bag and then removed it from the umbilical port site. The Rosendo-Lakisha fascial closure device was used. We used two sutures, both 0 Vicryl to close the fascia and then we removed the ports under direct vision. As mentioned, we took down a single adhesion with the Harmonic scalpel in the left lower quadrant. There was no identified hernia. It was simply adhered to the anterior abdominal wall and it was simply omentum. The area where we had placed the Veress needle showed no evidence of any active bleeding. The underlying tissue was completely normal. I think this was very superficial. The bowel was completely normal. We decompressed the abdomen. Additional local was injected into the umbilical port site. Of note, in order to get the large gallbladder out, we did have to extend the skin incision and then underlying tissue and stretched out the fascial opening in order to get it out. Skin was closed with 4-0 Monocryl subcuticular stitch. The skin was cleaned and dried. Dermabond was placed. The patient tolerated procedure well and there were no complications. All counts were correct at the end of the case. There was no family waiting for her in the waiting room. JOB# [id number] ISSAC/ALFONZO
--- NOTE | 2018-04-15 13:48 | Fluoroscopy Report ---
FLUOROSCOPY CHOLANGIOGRAM OPERATIVE History: Symptomatic cholelithiasis. Findings: Fluoroscopy was provided by radiology during intraoperative cholangiogram by the surgeon. A single fluoroscopic image of the right upper quadrant demonstrates contrast agent within the biliary tree, proximal pancreatic duct and duodenum. No filling defect or stricture is identified. Cholecystectomy changes are noted. No biliary leak is appreciated. Please correlate with the procedural report as needed.
[2018-04-15] MEDS: D5/0.45NS 1,000 ML IV SCH (14:26)
--- NOTE | 2018-04-15 17:30 | Discharge Summary ---
Providers - Providers Date of Admission: 04/14/18 10:42 Date of discharge: 04/15/18 Attending physician: JANA BARR 04/14/18 10:42 Consult to Physician [CONS] Urgent Comment: Consulting Provider: CATERINA MEYERS Physician Instructions: Reason For Exam: cholecytitis Primary care physician: HAY STACKER Hospitalization Condition: Fair Disposition: DC-01 TO HOME OR SELFCARE Exam - Constitutional Vitals: Temp Pulse Resp BP Pulse Ox 98.1 F 87 16 133/89 95 04/15/18 13:00 04/15/18 13:00 04/15/18 13:00 04/15/18 13:00 04/15/18 13:00 Plan Diet: low fat, low cholesterol, other (Mechanical soft diet, low fat) Additional Instructions: 1.Follow up with PCP or [facility] in 1 week. 2.Follow up with Dr. Meyers in 1 week Follow up with: PRIMARY CARE,MD [Primary Care Provider] - 3-5 Days Prescriptions: Famotidine [Pepcid] 20 mg PO BID #30 tablet oxyCODONE /ACETAMINOPHEN [Percocet 5/325] 1 tab PO Q6HR PRN #12 tablet PRN Reason: Pain Promethazine [Phenergan TAB] 25 mg PO Q6HR PRN #20 tab PRN Reason: Nausea
[2018-04-15 18:14] VITALS: BP 116/79
== END 2018-04-15 19:00 | disposition home or self-care (01) | DRG 418 ==
LOC: ED 01:17 → 3A 10:42
PROVIDERS: ADMIT Internal Medicine; ATTEND Internal Medicine
PROC: 0FT44ZZ Resection of Gallbladder, Percutaneous Endoscopic Approach (ICD-10-PCS; principal; 2018-04-15)
PROC: BF131ZZ Fluoroscopy of Gallbladder and Bile Ducts using Low Osmolar Contrast (ICD-10-PCS; 2018-04-15)
DX: K80.00 Calculus of gallbladder with acute cholecystitis without obstruction (principal); J45.901 Unspecified asthma with (acute) exacerbation; J44.9 Chronic obstructive pulmonary disease, unspecified; E66.9 Obesity, unspecified; Z82.3 Family history of stroke; Z82.49 Family history of ischemic heart disease and other diseases of the circulatory system; Z68.35 Body mass index [BMI] 35.0-35.9, adult
CPT/HCPCS: 36415; 74300; 80048; 80053; 81001; 83690; 85025; 85610; 85730; 87040; 88304; 93005; 93010; 94640; 96372; 96374; 96375; J0500; J1100; J1170; J1885; J2250; J2270; J2405; J2543; J2704; J7030; J7120; Q9967